=== PATIENT | male | born 1955 | race Caucasian/White ===

== ENCOUNTER 2017-03-18 21:00 | Emergency (ER) | payer OTHER ==
[~2017-03-18] VITALS: Ht 162.6 cm; Wt 114.8 kg
[2017-03-18 21:45] VITALS: BP_SYST 118
--- NOTE | 2017-03-18 21:45 | NUR ---
Patient to ER bed 3 for evaluation. Side rails up. Report given to VIVIAN Nelson.
--- NOTE | 2017-03-18 22:00 | NUR ---
Patient to ED via triage with c/o right leg pain and redness which has been spreading since Monday. Patient reports that he saw his PMD yesterday and had a doppler which was negative for blood clot. Patient given RX for Keflex x 10 days. Patient reports pain is 6/10, awaiting evaluation by ER MD. Will continue to observe and assess.
[2017-03-18] MEDS ORDERED: WARF10TA22 PO ×2 (22:14)
[2017-03-18] MEDS ORDERED: SOTALOL PO (22:16)
[2017-03-18] MEDS ORDERED: LOSARTAN PO (22:16)
[2017-03-18] MEDS ORDERED: LASIX PO (22:17)
[2017-03-18] MEDS ORDERED: LIP20 PO (22:17)
[2017-03-18] MEDS ORDERED: ALBU8.5H8 INH (22:18)
--- NOTE | 2017-03-18 22:30 | NUR ---
Dr Mitchell at bedside to evaluate patient.
[2017-03-18] MEDS ORDERED: SULFAMETHOXAZOLE/TRIMETHOPR DS 1 TABLET PO ONE (22:45)
[2017-03-18] MEDS ORDERED: CLINDAMYCIN HCL 150 MG CAPSULE PO ONE (22:45)
[2017-03-18] MEDS ORDERED: KETOROLAC TROMETHAMINE 60 MG/2 ML VIAL IM ONE (22:45)
--- NOTE | 2017-03-18 23:30 | NUR ---
No adverse reactions noted to medication.
--- NOTE | 2017-03-18 23:50 | NUR ---
Patient given written and verbal discharge instructions and verbalizes understanding. ER MD discussed with patient the results and treatment provided. Patient in stable condition. ID arm band removed. Rx of Clindamycin, Keflex, Motrin, Tramadol, Mupricin given. Patient educated on pain management and to follow up with PMD. Pain Scale 6. Opportunity for questions provided and answered.
[2017-03-18 23:52] VITALS: BP_SYST 106
== END 2017-03-18 23:52 | disposition home or self-care (01) ==
LOC: SED 21:00
DX: L03.115 Cellulitis of right lower limb (principal); I48.91 Unspecified atrial fibrillation; E78.00 Pure hypercholesterolemia, unspecified; Z86.73 Personal history of transient ischemic attack (TIA), and cerebral infarction without residual deficits; Z79.01 Long term (current) use of anticoagulants; I10 Essential (primary) hypertension; Z88.1 Allergy status to other antibiotic agents
CPT/HCPCS: 96372; 99283; J1885

== ENCOUNTER 2017-03-19 16:55 | Inpatient (IN) | payer OTHER ==
[~2017-03-19] VITALS: Ht 162.6 cm; Wt 116.1 kg
[~2017-03-19 16:55] MED LIST: ALBU8.5H8 INH; LASIX PO; LIP20 PO; LOSARTAN PO; SOTALOL PO; WARF10TA22 PO
[2017-03-19 17:06] VITALS: BP_SYST 116
[2017-03-19 17:50] LABS: CREATININE 1.82 mg/dL (0.55-1.30); POTASSIUM 3.1 mmol/L (3.5-5.1)
[2017-03-19 18:07] LABS: ALBUMIN 2.7 g/dL (3.4-4.8)
[2017-03-19 18:13] LABS: BASOPHILS % (AUTO) 0.1 % (0.0-2.0); EOSINOPHILS # (AUTO) 0.2 K/uL (0.0-0.4); EOSINOPHILS % (AUTO) 1.5 % (0.0-4.0); HEMATOCRIT 35.1 % (36-54); HEMOGLOBIN 11.5 g/dL (14.0-18.0); LYMPHOCYTES # (AUTO) 0.7 K/uL (1.0-5.5); LYMPHOCYTES % (AUTO) 6.6 % (20.5-51.5); MEAN CORPUSCULAR HEMOGLOBIN 29 pg (27-31); MEAN CORPUSCULAR HGB CONC 33 % (32-36); MEAN CORPUSCULAR VOLUME 89 fL (79.0-98.0); MONOCYTES % (AUTO) 9.6 % (1.7-9.3); NEUTROPHILS # (AUTO) 8.5 K/uL (1.8-7.7); NEUTROPHILS % (AUTO) 82.2 % (40.0-70.0); PLATELET COUNT (AUTO) 220 K/uL (130-430); RED BLOOD CELL COUNT(AUTO) 3.96 MIL/uL (4.2-6.2); RED CELL DISTRIBUTION WIDTH 13.2 % (9.0-15.0); WHITE BLOOD COUNT (AUTO) 10.4 K/uL (4.8-10.8)
[2017-03-19] MEDS ORDERED: NACL 0.9% 1,000 ML IV ONE (18:41)
[2017-03-19] MEDS ORDERED: PIPERACILLIN/TAZO 3.375 GM in NS 50 ML IV ONE (18:45)
[2017-03-19] MEDS ORDERED: methylPREDNISolone SOD SUCC 500 MG/VIAL (Solu-MEDROL) IV ONE (18:45)
[2017-03-19] MEDS ORDERED: PIPERACILLIN/TAZOBACTAM 3.375 GM/VIAL (ZOSYN) IV ONE (19:05)
[2017-03-19] MEDS ORDERED: VANCOMYCIN HCL 1,000 MG in NS 250 ML IV ONE (19:15)
[2017-03-19] MEDS ORDERED: POTASSIUM CHLORIDE 20 MEQ TAB.PRT.SR PO ONE (20:15)
[2017-03-19] MEDS ORDERED: VANCOMYCIN HCL 1000 MG/VIAL IV ONE (20:31)
[2017-03-19] MEDS ORDERED: methylPREDNISolone SOD SUCC/PF 62.5 MG/ML VIAL ONE ×2 (20:31→21:04)
[2017-03-19] MEDS ORDERED: MORPHINE 2 MG/ML INJ. SYRINGE IVP ONE (22:30)
[2017-03-19 23:05] VITALS: BP_SYST 120
[2017-03-19] MEDS ORDERED: ACETAMINOPHEN/CODEINE 300 MG-30 MG TABLET PO PRN (23:15)
[2017-03-19] MEDS ORDERED: ACETAMINOPHEN 325 MG TABLET PO PRN (23:15)
[2017-03-19] MEDS ORDERED: DEXTROSE 50% JECT 50 ML DISP.SYRIN IVP PRN (23:30)
[2017-03-19] MEDS ORDERED: ZOLPIDEM TARTRATE 5 MG TABLET PO PRN (23:45)
[2017-03-20] MEDS ORDERED: IPRATROPIUM/ALBUTEROL SULFATE 3 ML AMPUL.NEB INH PRN
[2017-03-20] MEDS ORDERED: PIPERACILLIN/TAZOBACTAM 3.375 GM/VIAL (ZOSYN) IV ONE (00:31)
[2017-03-20 03:28] VITALS: BP_SYST 125
[2017-03-20 03:43] VITALS: BP_SYST 175
[2017-03-20] MEDS: INSULIN REGULAR, HUMAN 100 UNITS/ML, 10 ML VIAL (novoLIN R) SUBCUT PRN ×4 (05:56→21:29)
[2017-03-20] MEDS ORDERED: PIPERACILLIN/TAZO 3.375/DEX-IS 50 ML IV SCH ×2 (06:00)
[2017-03-20] MEDS ORDERED: ZOSYN (PIPERACILLIN/TAZO) 2.25 GM in DEX-ISO (50ml) IV SCH (06:00)
[2017-03-20 07:55] LABS: HEMATOCRIT 34.7 % (36-54); HEMOGLOBIN 11.6 g/dL (14.0-18.0); MEAN CORPUSCULAR HEMOGLOBIN 30 pg (27-31); MEAN CORPUSCULAR HGB CONC 33 % (32-36); MEAN CORPUSCULAR VOLUME 89 fL (79.0-98.0); RED BLOOD CELL COUNT(AUTO) 3.89 MIL/uL (4.2-6.2); RED CELL DISTRIBUTION WIDTH 13.5 % (9.0-15.0); WHITE BLOOD COUNT (AUTO) 10.3 K/uL (4.8-10.8)
[2017-03-20 08:00] VITALS: BP_SYST 126
[2017-03-20 08:17] LABS: CALCIUM 8.6 mg/dL (8.4-11.0); CREATININE 1.67 mg/dL (0.55-1.30)
[2017-03-20 08:32] LABS: ALBUMIN 2.4 g/dL (3.4-4.8); FREE T4 (FREE THYROXINE) 1.1 ng/dl (0.8-1.5); THYROID STIMULATING HORMONE 1.4 uIu/mL (0.36-3.74); TOTAL BILIRUBIN 0.8 mg/dL (0.0-1.0)
[2017-03-20 08:34] LABS: INR 3.9 (0.80-1.20); PROTHROMBIN TIME 44.5 SECS (9.5-12.5)
[2017-03-20 08:39] LABS: ERYTHROCYTE SEDIMENTATION RATE 94 MM/HR (0-15)
[2017-03-20 09:00] LABS: ATYPICAL LYMPHOCYTES % 0 % (0-0); BAND % (MANUAL) 4 % (0-6); BASOPHILS % (MANUAL) 0 % (0-2); EOSINOPHILS % (MANUAL) 0 % (0-7); LYMPHOCYTES % (MANUAL) 5 % (20-46); MONOCYTES % (MANUAL) 4 % (0-11)
[2017-03-20 09:02] LABS: PLATELET COUNT (AUTO) 205 K/uL (130-430)
[2017-03-20] MEDS: LOSARTAN POTASSIUM 50 MG TABLET (COZAAR) PO SCH ×2 (09:32→21:18)
[2017-03-20] MEDS: ATORVASTATIN 20 MG TABLET PO SCH (09:33)
[2017-03-20] MEDS: ACETAMINOPHEN/CODEINE 300 MG-30 MG TABLET PO PRN (09:34)
[2017-03-20] MEDS: SOTALOL (AF) 80 MG TABLET PO SCH ×2 (09:35→21:22)
[2017-03-20 11:31] LABS: TOTAL IRON BIND. CAPACITY 214 ug/dL (250-450)
[2017-03-20 12:17] VITALS: BP_SYST 115
[2017-03-20] MEDS: ceFAZolin SODIUM 1 GM in D5W 50 ML IV SCH ×2 (14:54→21:18)
[2017-03-20 16:15] VITALS: BP_SYST 117
[2017-03-20] MEDS ORDERED: WARFARIN SODIUM 5 MG TABLET PO SCH (17:00)
[2017-03-20 19:40] VITALS: BP_SYST 126
[2017-03-20] MEDS: ZOLPIDEM TARTRATE 5 MG TABLET PO SCH (21:18)
[2017-03-21] VITALS (7 sets, daily range): BP systolic 92–128
[2017-03-21] MEDS: ceFAZolin SODIUM 1 GM in D5W 50 ML IV SCH ×3 (06:03→22:06)
[2017-03-21] MEDS: INSULIN REGULAR, HUMAN 100 UNITS/ML, 10 ML VIAL (novoLIN R) SUBCUT PRN ×2 (06:12→20:56)
[2017-03-21 07:51] LABS: PROTHROMBIN TIME 42.6 SECS (9.5-12.5)
[2017-03-21 07:52] LABS: INR 3.8 (0.80-1.20)
[2017-03-21] MEDS: ATORVASTATIN 20 MG TABLET PO SCH (09:20)
[2017-03-21] MEDS: SOTALOL (AF) 80 MG TABLET PO SCH ×2 (09:22→20:50)
[2017-03-21] MEDS: LOSARTAN POTASSIUM 50 MG TABLET (COZAAR) PO SCH ×2 (09:22→20:47)
[2017-03-21 11:13] LABS: HEMOGLOBIN A1C 6.5 % (4.8-5.6)
[2017-03-21] MEDS ORDERED: WARFARIN SODIUM 5 MG TABLET PO SCH (17:00)
[2017-03-21] MEDS ORDERED: FUROSEMIDE 40 MG/4 ML VIAL IVP ONE (18:00)
[2017-03-21] MEDS ORDERED: POTASSIUM CHLORIDE 20 MEQ TAB.PRT.SR PO ONE (18:00)
[2017-03-21] MEDS ORDERED: IPRATROPIUM/ALBUTEROL SULFATE 3 ML AMPUL.NEB INH PRN (20:00)
[2017-03-21] MEDS: ZOLPIDEM TARTRATE 5 MG TABLET PO SCH (22:07)
[2017-03-22 03:46] VITALS: BP_SYST 108
[2017-03-22 05:06] LABS: FOLATE (FOLIC ACID) 18.1 ng/mL (>3.0)
[2017-03-22] MEDS: ceFAZolin SODIUM 1 GM in D5W 50 ML IV SCH ×2 (05:59→15:15)
[2017-03-22 07:41] LABS: BASOPHILS % (AUTO) 0.2 % (0.0-2.0); EOSINOPHILS # (AUTO) 0.1 K/uL (0.0-0.4); EOSINOPHILS % (AUTO) 0.7 % (0.0-4.0); HEMATOCRIT 32.7 % (36-54); HEMOGLOBIN 11.1 g/dL (14.0-18.0); LYMPHOCYTES # (AUTO) 1.5 K/uL (1.0-5.5); LYMPHOCYTES % (AUTO) 14.3 % (20.5-51.5); MEAN CORPUSCULAR HEMOGLOBIN 30 pg (27-31); MEAN CORPUSCULAR HGB CONC 34 % (32-36); MEAN CORPUSCULAR VOLUME 87 fL (79.0-98.0); MONOCYTES # (AUTO) 0.5 K/uL (0.0-1.0); MONOCYTES % (AUTO) 4.6 % (1.7-9.3); NEUTROPHILS # (AUTO) 8.2 K/uL (1.8-7.7); NEUTROPHILS % (AUTO) 80.2 % (40.0-70.0); PLATELET COUNT (AUTO) 271 K/uL (130-430); RED BLOOD CELL COUNT(AUTO) 3.74 MIL/uL (4.2-6.2); RED CELL DISTRIBUTION WIDTH 13.4 % (9.0-15.0); WHITE BLOOD COUNT (AUTO) 10.4 K/uL (4.8-10.8)
[2017-03-22 08:00] VITALS: BP_SYST 118
[2017-03-22 08:05] LABS: INR 2.2 (0.80-1.20)
[2017-03-22 08:22] LABS: CREATININE 1.44 mg/dL (0.55-1.30); POTASSIUM 3.8 mmol/L (3.5-5.1)
[2017-03-22] MEDS: ACETAMINOPHEN/CODEINE 300 MG-30 MG TABLET PO PRN (08:52)
[2017-03-22] MEDS ORDERED: FUROSEMIDE 40 MG/4 ML VIAL IVP SCH (09:00)
[2017-03-22 09:02] LABS: PROTHROMBIN TIME 24.4 SECS (9.5-12.5)
[2017-03-22] MEDS: SOTALOL (AF) 80 MG TABLET PO SCH (09:48)
[2017-03-22] MEDS: LOSARTAN POTASSIUM 50 MG TABLET (COZAAR) PO SCH (09:49)
[2017-03-22] MEDS: ATORVASTATIN 20 MG TABLET PO SCH (09:49)
[2017-03-22 12:46] VITALS: BP_SYST 112
[2017-03-22 16:32] VITALS: BP_SYST 111
[2017-03-22 16:39] VITALS: BP_SYST 111
== END 2017-03-22 18:10 | disposition short-term general hospital (02) | DRG 603 ==
LOC: SED 16:55 → STU 20:59 → SMU 03-21 21:43
PROVIDERS: ADMIT Internal Medicine; ATTEND Internal Medicine
DX: L03.115 Cellulitis of right lower limb (principal); E11.21 Type 2 diabetes mellitus with diabetic nephropathy; E44.0 Moderate protein-calorie malnutrition; Z68.41 Body mass index [BMI] 40.0-44.9, adult; I48.2 Chronic atrial fibrillation; J44.9 Chronic obstructive pulmonary disease, unspecified; E11.22 Type 2 diabetes mellitus with diabetic chronic kidney disease; E87.6 Hypokalemia; I87.2 Venous insufficiency (chronic) (peripheral); D63.8 Anemia in other chronic diseases classified elsewhere; N18.9 Chronic kidney disease, unspecified; G47.33 Obstructive sleep apnea (adult) (pediatric); E66.9 Obesity, unspecified; E78.00 Pure hypercholesterolemia, unspecified; Z86.73 Personal history of transient ischemic attack (TIA), and cerebral infarction without residual deficits; Z79.899 Other long term (current) drug therapy; Z88.1 Allergy status to other antibiotic agents
CPT/HCPCS: 36415; 71010; 73700-TC; 80048; 80053; 82140-TC; 82607; 82746; 82962; 83036; 83540-TC; 83550-TC; 83605; 83880; 84439; 84443-TC; 85007; 85025; 85027; 85610-TC; 85651-TC; 87040-TC; 87070-TC; 87075-TC; 87186-TC; 93005; 93306; 93923; 94640; 94660; 96365; 96375; 99285; J0690; J1815; J1940; J2270; J2543; J2930; J3370; J7030; J7050; J7060

== ENCOUNTER 2018-01-14 13:52 | Emergency (ER) | payer OTHER ==
[~2018-01-14] VITALS: Ht 162.6 cm; Wt 113.4 kg
[2018-01-14 14:22] VITALS: BP_SYST 125
[2018-01-14 15:31] LABS: CALCIUM 9.5 mg/dL (8.4-11.0); CREATININE 2.14 mg/dL (0.55-1.30); POTASSIUM 4.4 mmol/L (3.5-5.1)
[2018-01-14 15:36] LABS: ALBUMIN 3.3 g/dL (3.4-4.8); TOTAL BILIRUBIN 0.7 mg/dL (0.0-1.0)
[2018-01-14 15:37] LABS: EOSINOPHILS # (AUTO) 0.2 K/uL (0.0-0.4); MEAN CORPUSCULAR HEMOGLOBIN 30 pg (27-31)
[2018-01-14 15:57] LABS: INR 1.2 (0.80-1.20); PROTHROMBIN TIME 11.8 SECS (9.5-12.5)
[2018-01-14 16:05] LABS: BASOPHILS # (AUTO) 0.1 K/uL (0.0-0.2); BASOPHILS % (AUTO) 1.6 % (0.0-2.0); HEMOGLOBIN 12.1 g/dL (14.0-18.0); LYMPHOCYTES # (AUTO) 1.2 K/uL (1.0-5.5); LYMPHOCYTES % (AUTO) 14.1 % (20.5-51.5); MEAN CORPUSCULAR HGB CONC 34 % (32-36); MEAN CORPUSCULAR VOLUME 90 fL (79.0-98.0); MONOCYTES # (AUTO) 0.9 K/uL (0.0-1.0); MONOCYTES % (AUTO) 11.3 % (1.7-9.3); NEUTROPHILS # (AUTO) 5.8 K/uL (1.8-7.7); PLATELET COUNT (AUTO) 231 K/uL (130-430); RED BLOOD CELL COUNT(AUTO) 3.98 MIL/uL (4.2-6.2); RED CELL DISTRIBUTION WIDTH 14.9 % (9.0-15.0); WHITE BLOOD COUNT (AUTO) 8.2 K/uL (4.8-10.8)
[2018-01-14 16:25] VITALS: BP_SYST 128
== END 2018-01-14 16:25 | disposition home or self-care (01) ==
LOC: SED 13:52
DX: K64.9 Unspecified hemorrhoids (principal); K62.5 Hemorrhage of anus and rectum; I10 Essential (primary) hypertension; E78.00 Pure hypercholesterolemia, unspecified; I48.91 Unspecified atrial fibrillation; Z86.73 Personal history of transient ischemic attack (TIA), and cerebral infarction without residual deficits; Z88.1 Allergy status to other antibiotic agents; Z79.899 Other long term (current) drug therapy
CPT/HCPCS: 36415; 80053; 82272; 85025; 85610-TC; 85730-TC; 86886; 86900; 86901; 99284

== ENCOUNTER 2018-02-25 11:00 | Inpatient (IN) | payer OTHER ==
[~2018-02-25] VITALS: Ht 165.1 cm; Wt 113.4 kg
[2018-02-25 11:03] VITALS: BP_SYST 96
[2018-02-25] MEDS ORDERED: NACL 0.9% 1,000 ML IV ONE ×2 (11:06→11:15)
[2018-02-25] MEDS ORDERED: MAGNESIUM SULFATE 50 ML IV ONE (11:15)
[2018-02-25] MEDS ORDERED: ASPIRIN 81 MG TAB.CHEW PO ONE (11:15)
[2018-02-25] MEDS ORDERED: DILTIAZEM HCL 120 MG CAP.SR.24H PO ONE (11:45)
[2018-02-25 11:48] LABS: MEAN CORPUSCULAR HEMOGLOBIN 33 pg (27-31)
[2018-02-25 11:52] LABS: HEMATOCRIT 28.8 % (36-54); HEMOGLOBIN 9.8 g/dL (14.0-18.0); MEAN CORPUSCULAR HGB CONC 34 % (32-36); MEAN CORPUSCULAR VOLUME 98 fL (79.0-98.0); PLATELET COUNT (AUTO) 176 K/uL (130-430); RED BLOOD CELL COUNT(AUTO) 2.95 MIL/uL (4.2-6.2); RED CELL DISTRIBUTION WIDTH 14.8 % (9.0-15.0); WHITE BLOOD COUNT (AUTO) 13.3 K/uL (4.8-10.8)
[2018-02-25 12:06] LABS: INR 1.7 (0.80-1.20); PROTHROMBIN TIME 17.7 SECS (9.5-12.5)
[2018-02-25 12:15] LABS: CALCIUM 8.4 mg/dL (8.4-11.0); CREATININE 2.92 mg/dL (0.55-1.30); POTASSIUM 4.6 mmol/L (3.5-5.1)
[2018-02-25 12:23] LABS: ALBUMIN 2.9 g/dL (3.4-4.8)
[2018-02-25] MEDS ORDERED: cefTRIAXone 1 GM IVPB PREMIX 50 ML IV ONE (12:30)
[2018-02-25 12:37] LABS: BAND % (MANUAL) 33 % (0-6); LYMPHOCYTES % (MANUAL) 1 % (20-46)
[2018-02-25 12:38] LABS: BILIRUBIN,URINE NEGATIVE (NEGATIVE); BLOOD, URINE NEGATIVE (NEGATIVE); CLARITY/URINE CLEAR (CLEAR); COLOR,URINE ORANGE (YELLOW); GLUCOSE,URINE NEGATIVE (NEGATIVE); KETONES,URINE TRACE (NEGATIVE); LEUKOCYTE ESTERASE ,URINE NEGATIVE (NEGATIVE); NITRITE, URINE NEGATIVE (NEGATIVE); PROTEIN URINE NEGATIVE (NEGATIVE); UROBILINOGEN,URINE 0.2 (0.2-1.0)
[2018-02-25 12:38] LABS: BASOPHILS % (MANUAL) 0 % (0-2); EOSINOPHILS % (MANUAL) 0 % (0-7); MONOCYTES % (MANUAL) 2 % (0-11)
[2018-02-25] MEDS ORDERED: LORazepam 2 MG/ML VIAL (FOR ER USE) IVP ONE (12:45)
[2018-02-25] MEDS ORDERED: CORCR10 PO (13:02)
[2018-02-25] MEDS ORDERED: RIVA10TA PO (13:02)
[2018-02-25] MEDS ORDERED: ISO10 PO (13:02)
[2018-02-25] MEDS ORDERED: [UNRECOGNIZED DRUG - CODE] PO (13:02)
[2018-02-25] MEDS ORDERED: FERR140T PO (13:05)
[2018-02-25 13:30] VITALS: BP_SYST 87
[2018-02-25] MEDS ORDERED: ISOSORBIDE DINITRATE 10 MG TABLET (ISORDIL) PO SCH (14:15)
[2018-02-25] MEDS ORDERED: FERROUS SULFATE 140 MG TABLET.ER PO SCH (14:15)
[2018-02-25] MEDS ORDERED: ALBUTEROL SULFATE 0.083% 2.5 MG/3 ML VIAL.NEB INH PRN (14:15)
[2018-02-25] MEDS ORDERED: NIACIN 500 MG TABLET.SA PO ONE (14:45)
[2018-02-25] MEDS ORDERED: FERROUS SULFATE 325 MG TABLET.DR PO ONE (15:00)
[2018-02-25] MEDS ORDERED: ISOSORBIDE MONONITRATE 30 MG TAB.ER.24H PO ONE (15:00)
[2018-02-25 16:00] VITALS: BP_SYST 90
[2018-02-25] MEDS ORDERED: DIGOXIN 0.25 MG TABLET PO ONE (16:00)
[2018-02-25] MEDS ORDERED: HYDROcodone/ACETAMIN 5-325 MG TAB (NORCO/ VICODIN) PO PRN (18:30)
[2018-02-25] MEDS: IPRATROPIUM/ALBUTEROL SULFATE 3 ML AMPUL.NEB INH SCH ×2 (19:40→23:15)
[2018-02-25 20:00] VITALS: BP_SYST 92
[2018-02-25] MEDS ORDERED: ZOLPIDEM TARTRATE 5 MG TABLET PO SCH (21:00)
[2018-02-26 00:23] VITALS: BP_SYST 130
[2018-02-26] MEDS: IPRATROPIUM/ALBUTEROL SULFATE 3 ML AMPUL.NEB INH SCH ×4 (03:00→15:00)
[2018-02-26 07:13] LABS: BASOPHILS % (AUTO) 0.5 % (0.0-2.0); EOSINOPHILS % (AUTO) 0.3 % (0.0-4.0); HEMATOCRIT 26.2 % (36-54); HEMOGLOBIN 8.7 g/dL (14.0-18.0); LYMPHOCYTES # (AUTO) 0.4 K/uL (1.0-5.5); LYMPHOCYTES % (AUTO) 4.8 % (20.5-51.5); MEAN CORPUSCULAR HEMOGLOBIN 33 pg (27-31); MEAN CORPUSCULAR HGB CONC 33 % (32-36); MEAN CORPUSCULAR VOLUME 98 fL (79.0-98.0); MONOCYTES # (AUTO) 0.3 K/uL (0.0-1.0); MONOCYTES % (AUTO) 3.7 % (1.7-9.3); NEUTROPHILS # (AUTO) 7.5 K/uL (1.8-7.7); NEUTROPHILS % (AUTO) 90.7 % (40.0-70.0); PLATELET COUNT (AUTO) 137 K/uL (130-430); RED BLOOD CELL COUNT(AUTO) 2.68 MIL/uL (4.2-6.2); RED CELL DISTRIBUTION WIDTH 14.7 % (9.0-15.0); WHITE BLOOD COUNT (AUTO) 8.2 K/uL (4.8-10.8)
[2018-02-26 07:56] LABS: ANION GAP 12 (5-15); CHLORIDE 99 mmol/L (98-107); CREATININE 3.08 mg/dL (0.55-1.30); GLUCOSE 201 mg/dL (70-99); POTASSIUM 4.5 mmol/L (3.5-5.1); SODIUM SERUM 134 mmol/L (136-145); UREA NITROGEN, BLOOD 56 mg/dL (8-21)
[2018-02-26 07:57] LABS: CHOLESTEROL 96 mg/dL (<200); GFR AFRICAN AMERICAN 26 mL/min (>90); HDL CHOLESTEROL 13 mg/dL (>45); LDL CHOLESTEROL 45 mg/dL (<100); TRIGLYCERIDES 175 mg/dL (30-150)
[2018-02-26 08:00] VITALS: BP_SYST 75
[2018-02-26] MEDS ORDERED: LOSARTAN POTASSIUM 50 MG TABLET (COZAAR) PO SCH (09:00)
[2018-02-26] MEDS ORDERED: RIVAROXABAN 10 MG TABLET PO SCH (09:00)
[2018-02-26] MEDS ORDERED: cefTRIAXone 1 GM in D5W 50 ML IV SCH (09:00)
[2018-02-26] MEDS ORDERED: DIGOXIN 0.125 MG TABLET PO SCH (09:00)
[2018-02-26] MEDS ORDERED: NIACIN 500 MG TABLET.SA PO SCH (09:00)
[2018-02-26] MEDS ORDERED: FERROUS SULFATE 325 MG TABLET.DR PO SCH (09:00)
[2018-02-26] MEDS ORDERED: ISOSORBIDE MONONITRATE 30 MG TAB.ER.24H PO SCH (09:00)
[2018-02-26] MEDS ORDERED: FUROSEMIDE 40 MG TABLET PO SCH (09:00)
[2018-02-26] MEDS ORDERED: NIACIN 500 MG TABLET.SA PO ONE (10:15)
[2018-02-26] MEDS ORDERED: ACETAMINOPHEN 500 MG TABLET PO PRN (11:15)
[2018-02-26 12:41] VITALS: BP_SYST 95
[2018-02-27] MEDS ORDERED: NIACIN 500 MG TABLET.SA PO SCH (09:00)
== END 2018-02-26 16:20 | disposition left against medical advice (07) | DRG 871 ==
LOC: SED 11:00 → STU 12:47
PROVIDERS: ADMIT Internal Medicine; ATTEND Internal Medicine
PROC: 5A09357 Assistance with Respiratory Ventilation, Less than 24 Consecutive Hours, Continuous Positive Airway Pressure (ICD-10-PCS; principal; 2018-02-25)
DX: A41.9 Sepsis, unspecified organism (principal); N17.0 Acute kidney failure with tubular necrosis; I50.43 Acute on chronic combined systolic (congestive) and diastolic (congestive) heart failure; I13.0 Hypertensive heart and chronic kidney disease with heart failure and stage 1 through stage 4 chronic kidney disease, or unspecified chronic kidney disease; L03.115 Cellulitis of right lower limb; D68.59 Other primary thrombophilia; Z68.41 Body mass index [BMI] 40.0-44.9, adult; L03.116 Cellulitis of left lower limb; N18.4 Chronic kidney disease, stage 4 (severe); I48.91 Unspecified atrial fibrillation; I27.21 Secondary pulmonary arterial hypertension; D63.8 Anemia in other chronic diseases classified elsewhere; E66.01 Morbid (severe) obesity due to excess calories; I87.8 Other specified disorders of veins; E11.21 Type 2 diabetes mellitus with diabetic nephropathy; E11.22 Type 2 diabetes mellitus with diabetic chronic kidney disease; J44.9 Chronic obstructive pulmonary disease, unspecified; I48.2 Chronic atrial fibrillation; I95.9 Hypotension, unspecified; R07.89 Other chest pain; E78.00 Pure hypercholesterolemia, unspecified; Z53.21 Procedure and treatment not carried out due to patient leaving prior to being seen by health care provider; G47.33 Obstructive sleep apnea (adult) (pediatric); I25.10 Atherosclerotic heart disease of native coronary artery without angina pectoris; Z88.1 Allergy status to other antibiotic agents; Z79.899 Other long term (current) drug therapy; Z79.01 Long term (current) use of anticoagulants; Z86.73 Personal history of transient ischemic attack (TIA), and cerebral infarction without residual deficits
CPT/HCPCS: 36415; 71045; 80048; 80053; 80061; 81003; 82150-TC; 82550-TC; 83605; 83690-TC; 83880; 84484; 85007; 85025; 85027; 85610-TC; 85730-TC; 87040-TC; 93005; 94640; 94660; 94760; 96365; 96368; 99291; 99292; J0696; J2060; J3475; J7060; J7620

== ENCOUNTER 2019-08-15 22:57 | Emergency (ER) | payer BC, OTHER ==
[~2019-08-15] VITALS: Ht 162.6 cm; Wt 100.2 kg
[~2019-08-15 22:57] MED LIST changes: +CORCR10 PO; +FERR140T2 PO; +ISO10 PO; -LIP20 PO; +RIVA10TA PO; -SOTALOL PO; -WARF10TA22 PO; +[UNRECOGNIZED DRUG - CODE] PO
[2019-08-15 23:10] VITALS: BP_SYST 127
[2019-08-16 03:08] VITALS: BP_SYST 119
== END 2019-08-16 03:08 | disposition home or self-care (01) ==
LOC: SED 22:57
DX: R05 Cough (principal); I48.91 Unspecified atrial fibrillation; E11.9 Type 2 diabetes mellitus without complications; I10 Essential (primary) hypertension; E78.00 Pure hypercholesterolemia, unspecified; Z86.79 Personal history of other diseases of the circulatory system; Z88.1 Allergy status to other antibiotic agents; Z79.899 Other long term (current) drug therapy
CPT/HCPCS: 71045; 99283

== ENCOUNTER 2019-11-27 22:51 | Emergency (ER) | payer BC ==
[~2019-11-27] VITALS: Ht 162.6 cm; Wt 98.4 kg
[2019-11-27 23:00] VITALS: BP_SYST 127
--- NOTE | 2019-11-27 23:00 | NUR ---
Pt wheeled to bed 5 for evaluation
--- NOTE | 2019-11-27 23:05 | NUR ---
Patient came to ER. C/O urinary problem x today. Patient states "after scrotoplasty at 1600, unable to urinate since." A/O,X4, pain rate 3/10.
[2019-11-27] MEDS ORDERED: DOCU-144 PO (23:17)
[2019-11-27] MEDS ORDERED: TYC3 PO (23:18)
[2019-11-27] MEDS ORDERED: RIVA15TA PO (23:18)
[2019-11-27] MEDS ORDERED: CARV6.2554 PO (23:19)
[2019-11-27] MEDS ORDERED: FURO-149 PO (23:19)
--- NOTE | 2019-11-27 23:22 | NUR ---
ER at bedside examining patient.
[2019-11-27] MEDS ORDERED: LIDOCAINE VISCOUS 2%, 15 ML UDC MM ONE (23:30)
--- NOTE | 2019-11-27 23:52 | NUR ---
Note rodolfoone in EDM - 11/28/19 at 0238 by [id number] # 16 FR Dykes catheter with use of sterile technique. Immediate return of 200 cc Yellow, clear urine noted. Bedside drainage bag placed below level of bladder. Urine sample collected and sent to lab. Pt tolerated procedure well. Patient arrived with dykes in place, changed due to standard of practice prior to admission. Patient unable to toilet self.
--- NOTE | 2019-11-27 23:52 | NUR ---
# 16 FR Ingram catheter with use of sterile technique. Immediate return of 200 cc Yellow, clear urine noted. Bedside drainage bag placed below level of bladder. Urine sample collected and sent to lab. Pt tolerated procedure well. Patient unable to toilet self.
--- NOTE | 2019-11-28 00:40 | NUR ---
D/C Ingram cath w bag, Patient tolerated well.
[2019-11-28 00:57] LABS: BILIRUBIN,URINE NEGATIVE (NEGATIVE); BLOOD, URINE NEGATIVE (NEGATIVE); CLARITY/URINE CLEAR (CLEAR); COLOR,URINE YELLOW (YELLOW); GLUCOSE,URINE NEGATIVE (NEGATIVE); KETONES,URINE NEGATIVE (NEGATIVE); LEUKOCYTE ESTERASE ,URINE NEGATIVE (NEGATIVE); NITRITE, URINE NEGATIVE (NEGATIVE); PH,URINE 5.5 (5.0-8.0); PROTEIN URINE NEGATIVE (NEGATIVE); UROBILINOGEN,URINE 0.2 (0.2-1.0)
--- NOTE | 2019-11-28 01:04 | NUR ---
Patient went to restroom, able to urinate a little (per patient statement)
[2019-11-28] MEDS ORDERED: PHENAZOPYRIDINE HCL 100 MG TABLET PO ONE (01:15)
[2019-11-28 01:20] VITALS: BP_SYST 127
--- NOTE | 2019-11-28 01:20 | NUR ---
Patient given written and verbal discharge instructions and verbalizes understanding. ER MD discussed with patient the results and treatment provided. Patient in stable condition. ID arm band removed. Rx of Pyridium given. Patient educated on pain management and to follow up with PMD and Urologist. Pain Scale 1/10. Opportunity for questions provided and answered. Medication side effect fact sheet provided.
== END 2019-11-28 01:20 | disposition home or self-care (01) ==
LOC: SED 22:51
DX: R35.0 Frequency of micturition (principal); I48.91 Unspecified atrial fibrillation; Z79.899 Other long term (current) drug therapy; Z88.1 Allergy status to other antibiotic agents
CPT/HCPCS: 81003; 99283; J2001

== ENCOUNTER 2019-11-30 20:18 | Emergency (ER) | payer BC ==
[~2019-11-30] VITALS: Ht 162.6 cm; Wt 98.4 kg
[~2019-11-30 20:18] MED LIST changes: -ALBU8.5H8 INH; +CARV6.2554 PO; -CORCR10 PO; +DOCU-144 PO; -FERR140T2 PO; +FURO-149 PO; -ISO10 PO; -LASIX PO; -LOSARTAN PO; -RIVA10TA PO; +RIVA15TA PO; +TYC3 PO; -[UNRECOGNIZED DRUG - CODE] PO
[2019-11-30 20:30] VITALS: BP_SYST 122
[2019-11-30 21:15] VITALS: BP_SYST 114
== END 2019-11-30 21:15 | disposition home or self-care (01) ==
LOC: SED 20:18
DX: K59.00 Constipation, unspecified (principal); N50.89 Other specified disorders of the male genital organs; E78.00 Pure hypercholesterolemia, unspecified; I48.91 Unspecified atrial fibrillation; I10 Essential (primary) hypertension; E11.9 Type 2 diabetes mellitus without complications; Z79.899 Other long term (current) drug therapy; Z88.1 Allergy status to other antibiotic agents
CPT/HCPCS: 99281

== ENCOUNTER 2021-04-16 23:33 | Emergency (ER) | payer BC, SELFPAY ==
[~2021-04-16] VITALS: Ht 162.6 cm; Wt 98.4 kg
[2021-04-16 23:40] VITALS: BP_SYST 148
[2021-04-17 02:22] LABS: CALCIUM 9.6 mg/dL (8.4-11.0); CREATININE 1.18 mg/dL (0.55-1.30); POTASSIUM 4.1 mmol/L (3.5-5.1)
[2021-04-17 02:27] LABS: ALBUMIN 3.6 g/dL (3.4-4.8); TOTAL BILIRUBIN 0.6 mg/dL (0.0-1.0)
[2021-04-17] MEDS ORDERED: DOXYCYCLINE HYCLATE 100 MG in D5W 100 ML IV ONE (02:30)
[2021-04-17] MEDS ORDERED: cefTRIAXone 1 GM IVPB PREMIX 50 ML IV ONE (02:30)
[2021-04-17] MEDS ORDERED: cefTRIAXone 1 GM VIAL ONE (02:39)
[2021-04-17] MEDS ORDERED: DOXYCYCLINE HYCLATE 100 MG VIAL IV ONE (02:40)
[2021-04-17] MEDS ORDERED: DOXY100C5 PO (04:04)
[2021-04-17] MEDS ORDERED: AMOX-426 PO (04:04)
[2021-04-17] MEDS ORDERED: PROM473S6 PO (04:04)
[2021-04-17 04:25] VITALS: BP_SYST 148
[2021-04-17 05:30] LABS: BASOPHILS % (AUTO) 0.4 % (0.0-2.0); EOSINOPHILS # (AUTO) 0.1 K/uL (0.0-0.4); EOSINOPHILS % (AUTO) 1.4 % (0.0-4.0); HEMATOCRIT 41.2 % (36-54); LYMPHOCYTES # (AUTO) 1.1 K/uL (1.0-5.5); MEAN CORPUSCULAR HEMOGLOBIN 31 pg (27-31); MEAN CORPUSCULAR HGB CONC 34 % (32-36); MEAN CORPUSCULAR VOLUME 92 fL (79.0-98.0); MONOCYTES # (AUTO) 0.8 K/uL (0.0-1.0); MONOCYTES % (AUTO) 8.2 % (1.7-9.3); NEUTROPHILS # (AUTO) 8.1 K/uL (1.8-7.7); PLATELET COUNT (AUTO) 193 K/uL (130-430); RED BLOOD CELL COUNT(AUTO) 4.49 MIL/uL (4.2-6.2); RED CELL DISTRIBUTION WIDTH 13.6 % (9.0-15.0); WHITE BLOOD COUNT (AUTO) 10.3 K/uL (4.8-10.8)
== END 2021-04-17 04:26 | disposition home or self-care (01) ==
LOC: SED 23:33
DX: J18.9 Pneumonia, unspecified organism (principal); I48.20 Chronic atrial fibrillation, unspecified; I10 Essential (primary) hypertension; E11.9 Type 2 diabetes mellitus without complications; Z88.1 Allergy status to other antibiotic agents; Z79.899 Other long term (current) drug therapy
CPT/HCPCS: 36415; 71045; 80053; 83880; 85025; 93005; 96365; 96368; 99285; J0696; J3490

== ENCOUNTER 2021-08-10 05:10 | Day surgery (SDC) | payer BC, SELFPAY ==
[~2021-08-10] VITALS: Ht 162.6 cm; Wt 93.4 kg
[~2021-08-10 05:10] MED LIST changes: +AMOX-426 PO; +DOXY100C5 PO; +PROM473S6 PO
[2021-08-10] MEDS ORDERED: PHENAZOPYRIDINE HCL 100 MG TABLET PO ONE (07:30)
[2021-08-10] MEDS ORDERED: SUCCINYLCHOLINE CHLORIDE 20 MG/ML(QUELICIN) IVP ONE (07:46)
[2021-08-10] MEDS ORDERED: LR 1,000 ML IV.SOLN IV ONE (07:46)
[2021-08-10] MEDS ORDERED: DEXAMETHASONE SOD PHOSPHATE 4 MG/ML VIAL IVP ONE (07:46)
[2021-08-10] MEDS ORDERED: PROPOFOL 200MG/ 20ML VIAL (DIPRIVAN) IV ONE (07:46)
[2021-08-10] MEDS ORDERED: SEVOFLURANE 15 MIN GAS INH ONE (07:46)
[2021-08-10] MEDS ORDERED: ONDANSETRON HCL 4 MG/2 ML VIAL IVP ONE (07:46)
[2021-08-10] MEDS ORDERED: NS IRRIG SOLN 1000 ML IR ONE (07:46)
[2021-08-10] MEDS ORDERED: BUPIVACAINE /PF 0.25% 30 ML VIAL INJ ONE (07:46)
[2021-08-10] MEDS ORDERED: HYDROmorphone 2 MG/ML VIAL IVP ONE (07:46)
[2021-08-10] MEDS ORDERED: BUPIVACAINE LIPOSOME/PF 266 MG/20 ML VIAL INFIL ONE (07:47)
[2021-08-10] MEDS ORDERED: KETOROLAC TROMETHAMINE 30 MG VIAL IVP PRN (09:00)
[2021-08-10] MEDS ORDERED: ONDANSETRON HCL 4 MG/2 ML VIAL IVP PRN (09:00)
[2021-08-10] MEDS ORDERED: HYDROmorphone 1 MG/ML INJ. CARTRIDGE IVP PRN ×2 (09:00)
[2021-08-10 12:46] VITALS: BP_SYST 140
[2021-08-10] MEDS ORDERED: ONDANSETRON HCL 4 MG/2 ML VIAL ONE (13:44)
== END 2021-08-10 14:50 | disposition home or self-care (01) ==
LOC: SMU 05:10 → SDS 05:10
PROVIDERS: ATTEND Surgery
DX: K60.3 Anal fistula (principal); I48.91 Unspecified atrial fibrillation; Z86.73 Personal history of transient ischemic attack (TIA), and cerebral infarction without residual deficits; G47.33 Obstructive sleep apnea (adult) (pediatric); E66.01 Morbid (severe) obesity due to excess calories; Z20.822 Contact with and (suspected) exposure to COVID-19; Z79.899 Other long term (current) drug therapy
CPT/HCPCS: 36415; 46288; 87426; C9290; J0330; J1100; J1170; J2405; J2704; J3490; J7120; U0003